=== PATIENT | male | born 1940 | race Caucasian/White ===

== ENCOUNTER → 2023-05-12 13:53 | Outpatient (REF) | payer OTHER, SELFPAY | LOC: RCS 13:53 | PROVIDERS: ATTENDING PHYSICIAN Internal Medicine Cardiovascular Disease; FAMILY PHYSICIAN Internal Medicine | DX: I35.1 Nonrheumatic aortic (valve) insufficiency (principal) | CPT/HCPCS: 93306 ==

== ENCOUNTER 2024-02-28 15:42 | Observation (INO) | payer OTHER, SELFPAY ==
[2024-02-28] VITALS (22 sets, daily range): BP systolic 137–174; BP diastolic 72–98; BMI 33.5; BMI 33.2
--- NOTE | 2024-02-28 03:19 | ED.GENMED ---
History of Present Illness
<KUSHAL Aparicio - Last Filed: 03/04/24 00:48>
General
Chief Complaint: Chest Pain
Source: patient
Exam Limitations: none
Time Seen by Provider: 02/28/24 03:19
Nursing documentation reviewed up to this point in time: agreed with
History of Present Illness
History of Present Illness:
Pt is an 83 y/o M with PMH of HTN, HLD and CAD who presents to the ED with Left-sided chest pain x 1 1/2 hours that woke him from sleep. He states the pain originally started in his chest and then began to radiate into the L side of his neck and
down into his L arm. He states at the worst his pain was 10/10 but is now around 8/10 and is constant. He was given asprin 324mg and 2 doses of nitro on the way to the ED which he states has provided minimal relief. He also admits to a tingling and
cold sensation in his L arm that his been present since the pain radiated to his arm. He denies this in his R arm. He denies RIOS, changes in vision, nausea, vomiting, palpations, SOB, dyspnea, and abdominal pain.
Past History
<KUSHAL Aparicio - Last Filed: 03/04/24 00:48>
Past History
ED Past Medical History: CAD, GERD, HTN, Hypercholesterolemia and Other (divertulosis)
ED Past Surgical History: Appendectomy, Cardiac (Stent) and Orthopedic
Social History
Tobacco: Non-smoker
Alcohol: None
Drug: None
Personal:
Living: with family
Employment: Employed
Family History
Family History: Hypertension
Review of Systems
<KUSHAL Aparicio - Last Filed: 03/04/24 00:48>
Review of Systems
Allergies reviewed?: Yes
Constitutional: Reports no symptoms
Respiratory: Reports no symptoms
Cardiac: Reports chest pain
ABD/GI: Reports no symptoms
: Reports no symptoms
Musculoskeletal: Reports neck pain (x 1 1/2 hrs)
Neurological: Reports other (tingling sensation in L arm x 1 1/2 hours)
Phy Exam
<ST MarkusLA - Last Filed: 03/04/24 00:48>
General Physical Exam
General Presentation: mild distress
General age: appears stated age
General Skin: warm and dry
General Habitus: elderly and obese
General Mental: alert
General Hydration: appears well hydrated
Cardiovascular Exam
Cardiovascular Exam: regular rate/rhythm
<Matthew Malik DO - Last Filed: 02/28/24 07:47>
Pulmonary Exam
Pulmonary Exam: lungs clear and no respiratory distress
Neurological Exam
Neurological Exam: alert, oriented x3 and speech normal
Skin Exam
Skin Exam: normal color and warm/dry
Psychiatric Exam
Psychiatric Exam: normal mood/affect and anxious
Scores
<KUSHAL Aparicio - Last Filed: 03/04/24 00:48>
Heart Score for Chest Pain Patients
STEMI patient?: No
History: Moderately Suspicious
ECG: Normal
Age: >/= 65 years
Risk Factors: >/= 3 Risk Factors or History of CAD
Troponin: </= Normal Limit
Heart Score for Chest Pain Patients: 5
Heart Score Risk: 20.3% MACE over next 6 weeks
Course
<KUSHAL Aparicio - Last Filed: 03/04/24 00:48>
Orders/Labs/Results
Orders:
Orders
02/28/24 03:29
Electrocardiogram (*1) Urgent
Reason for Study: Other
Other Reason for Exam: Respiratory Distress
Cardiac Monitoring- Treatment ONCE
EKG- Treatment ONCE
IV Insert/Care/Rem.- Treatment PRN
02/28/24 03:31
Complete Blood Count/With Diff Urgent
Comprehensive Metabolic Panel Urgent
Troponin I Urgent
02/28/24 04:44
CT Chest Pe Study Urgent
Comment:
Reason For Exam: neck and chest pain
02/28/24 06:16
EKG [Electrocardiogram (*1)] Urgent
Reason for Study: Chest Pain
Other Reason for Exam: neck pain radiating to his chest
EKG- Treatment ONCE
02/28/24 06:35
Bladder Scan As Directed
Follow Bladder Retention/Intermittent Cath Algorithm?: Yes
PRN if no void in __ hours: 6
Frequency: Per Retention Algorithm
If Bladder Scan Result >: 400
then:: Straight cath
02/28/24 06:36
Straight Cath As Directed
Frequency: Per Retention Algorithm
Additional Instructions: straight cath as needed per acute urinary retention algorithm for 24 hrs
Additional Instructions: for bladder scan greater than 400 mL
02/28/24 06:42
NT-proBNP Urgent
Comment: ADD ON
Troponin I Urgent
02/28/24 09:52
Echo Follow-up Study Urgent
Reason for Study: chest pain
Cardiology Consult: Jeffery Child
Comment: Troponin serially normal, getting Ele today. WE.
Nuclear lexiscan Stress Test Urgent
Reason for Study: chest pain, serially normal Troponin
Cardiology Consult: Jeffery Child
NM Cardiac Stress Urgent
Comment: LEXISCAN, coming from ER, Troponin serially normal
Reason For Exam: chest pain
Type of Stress: Exercise
02/28/24 11:00
Aminophylline 75 mg IV CARDIAC SRVC Q3MPRN PRN
Flush (0.9% Sodium Chloride) [Flush (Nss)] See Dose Instructions IV PER PROTOCOL
Regadenoson [Lexiscan] 0.4 mg IV CARDIAC SRVC ONCE ONE
02/28/24 11:07
Add On- LAB Urgent
Tests Added?: pro-BNP, CVE
02/28/24 12:12
EKG [Electrocardiogram (*1)] Routine
Reason for Study: Chest Pain
02/28/24 13:50
Troponin I Urgent
Comment: OK to draw when back in ER. WE.
02/28/24 Dinner
Cholesterol Lowering
At Your Request: Limited Participation
Does patient need a safe tray?: No
Cholesterol Lowering: Sodium, 2 Gram
02/28/24 15:09
Admit/Transfer Patient As Directed
Co-Sign Provider:
Level of Care: Observation services
Assign to:: Telemetry
Physician / Group: Tomás/hospitalist
Diagnosis: chest pain
Reason for Telemetry: Chest Pain syndromes
Date to Stop Telemetry: 03/01/24
Time to Stop Telemetry: 11:00
02/28/24 15:10
PRN Pain Medication Management As Directed
May give lesser potent ordered pain med per pt: Yes
preference::
Protocol:: Medication orders for pain may be administered in a
manner that supports deferring to patient preference
when the pt is:
- Requesting an ordered lesser potent pain medication.
Least to most potent pain medications are defined
as: acetaminophen < NSAID < tramadol < opioids
(morphine, oxycodone, hydromorphone).
- Requesting a lesser dose of the same medication IF
ORDERED.
- Requesting a less intrusive route of administration
if both routes are prescribed by the provider (PO <
IV).
02/28/24 15:11
Code Status As Directed
Resuscitation Status: Full Code
02/28/24 16:28
Electrocardiogram (*1) Q6H
Reason for Study: Chest Pain
Comment: at admission and Q3H for total of 3, to be done with each troponin
Acetaminophen [Tylenol] 650 mg PO Q6HPRN PRN
02/28/24 16:28
CARDIOLOGY CONSULT Routine
Consulting Provider: Jeffery Child
Was physician already notified: Yes
Activity As Directed
Activity Level: As Tolerated
Bladder Scan As Directed
Follow Bladder Retention/Intermittent Cath Algorithm?: Yes
PRN if no void in __ hours: 6
Frequency: Per Retention Algorithm
If Bladder Scan Result >: 400
then:: Straight cath
INT (Intravenous Needle Therapy) As Directed
Comment: maintain peripheral IV access
Intake/ Output As Directed
Frequency: Per unit guidelines
Straight Cath As Directed
Frequency: Per Retention Algorithm
Additional Instructions: straight cath as needed per acute urinary retention algorithm for 24 hrs
Additional Instructions: for bladder scan greater than 400 mL
Vital Signs As Directed
Frequency: q4h
Weight As Directed
Frequency: Daily
DX Deep Vein Thrombosis Video Routine
02/28/24 17:07
Glycohemoglobin (HgbA1c) Routine
02/28/24 18:00
Enoxaparin Sodium [Lovenox] 40 mg SC QPM
02/28/24 22:28
Electrocardiogram (*1) Q6H
Reason for Study: Chest Pain
Comment: at admission and Q3H for total of 3, to be done with each troponin
02/29/24 04:28
Electrocardiogram (*1) Q6H
Reason for Study: Chest Pain
Comment: at admission and Q3H for total of 3, to be done with each troponin
02/29/24 05:25
Basic Metabolic Panel IN AM
02/29/24 05:26
Complete Blood Count/No Diff IN AM
02/29/24 Breakfast
NPO
Allow oral meds: Yes
Allow clear liquids: 4hrs prior to procedure
Comment: may have unrestricted clear liquid up to 4 hrs prior to scheduled procedure
02/29/24 08:00
Allopurinol [Zyloprim] 100 mg PO DAILY
Aspirin Low Dose EC [Aspir Low (Enteric Coated)] 81 mg PO DAILY
Finasteride [Proscar] 5 mg PO DAILY
Hydrochlorothiazide [Oretic] 25 mg PO DAILY
Lisinopril [Zestril] 40 mg PO DAILY
Metoprolol [Lopressor] 25 mg PO DAILY
Tamsulosin [Flomax] 0.4 mg PO DAILY
03/01/24 11:00
DC Protocol for Telemetry ONCE
Abnormal Lab Results
02/28/24
03:31
MCH 31.3 H pg
(27.0-31.0)
MPV 10.8 H fL
(7.4-10.4)
Absolute Neuts (auto) 7.7 H 10^3/uL
(1.4-6.5)
Absolute Monos (auto) 0.8 H 10^3/uL
(0.1-0.6)
Lymphocytes % 17.7 L %
(20.5-51.1)
Carbon Dioxide 32 H mmol/L
(22-30)
BUN 22 H mg/dl
(9-20)
Glucose 125 H mg/dl
(70-99)
Alkaline Phosphatase 156 H U/L
(38-126)
02/28/24 03:31
02/28/24 03:31
Vital Signs
Initial and Last Documented VS:
Initial Vital Signs
Temp Pulse Resp BP Pulse Ox
98.1 F 67 17 150/98 92
02/28/24 03:13 02/28/24 03:13 02/28/24 03:13 02/28/24 03:13 02/28/24 03:13
Last Documented Vital Signs
Temp Pulse Resp BP Pulse Ox
97.8 F 76 18 146/98 94
02/29/24 11:01 02/29/24 11:01 02/29/24 11:01 02/29/24 11:01 02/29/24 11:01
<Matthew Malik, DO - Last Filed: 02/28/24 07:47>
Orders/Labs/Results
Orders:
Orders
02/28/24 03:29
Electrocardiogram (*1) Urgent
Reason for Study: Other
Other Reason for Exam: Respiratory Distress
Cardiac Monitoring- Treatment ONCE
EKG- Treatment ONCE
IV Insert/Care/Rem.- Treatment PRN
02/28/24 03:31
Complete Blood Count/With Diff Urgent
Comprehensive Metabolic Panel Urgent
Troponin I Urgent
02/28/24 04:44
CT Chest Pe Study Urgent
Comment:
Reason For Exam: neck and chest pain
02/28/24 06:16
EKG [Electrocardiogram (*1)] Urgent
Reason for Study: Chest Pain
Other Reason for Exam: neck pain radiating to his chest
EKG- Treatment ONCE
02/28/24 06:35
Bladder Scan As Directed
Follow Bladder Retention/Intermittent Cath Algorithm?: Yes
PRN if no void in __ hours: 6
Frequency: Per Retention Algorithm
If Bladder Scan Result >: 400
then:: Straight cath
02/28/24 06:36
Straight Cath As Directed
Frequency: Per Retention Algorithm
Additional Instructions: straight cath as needed per acute urinary retention algorithm for 24 hrs
Additional Instructions: for bladder scan greater than 400 mL
02/28/24 06:42
NT-proBNP Urgent
Comment: ADD ON
Troponin I Urgent
02/28/24 09:52
Echo Follow-up Study Urgent
Reason for Study: chest pain
Cardiology Consult: Jeffery Child
Comment: Troponin serially normal, getting Ele today. WE.
Nuclear lexiscan Stress Test Urgent
Reason for Study: chest pain, serially normal Troponin
Cardiology Consult: Jeffery Child
NM Cardiac Stress Urgent
Comment: LEXISCAN, coming from ER, Troponin serially normal
Reason For Exam: chest pain
Type of Stress: Exercise
02/28/24 11:00
Aminophylline 75 mg IV CARDIAC SRVC Q3MPRN PRN
Flush (0.9% Sodium Chloride) [Flush (Nss)] See Dose Instructions IV PER PROTOCOL
Regadenoson [Lexiscan] 0.4 mg IV CARDIAC SRVC ONCE ONE
02/28/24 11:07
Add On- LAB Urgent
Tests Added?: pro-BNP, CVE
02/28/24 12:12
EKG [Electrocardiogram (*1)] Routine
Reason for Study: Chest Pain
02/28/24 13:50
Troponin I Urgent
Comment: OK to draw when back in ER. WE.
02/28/24 Dinner
Cholesterol Lowering
At Your Request: Limited Participation
Does patient need a safe tray?: No
Cholesterol Lowering: Sodium, 2 Gram
02/28/24 15:09
Admit/Transfer Patient As Directed
Co-Sign Provider:
Level of Care: Observation services
Assign to:: Telemetry
Physician / Group: Tomás/hospitalist
Diagnosis: chest pain
Reason for Telemetry: Chest Pain syndromes
Date to Stop Telemetry: 03/01/24
Time to Stop Telemetry: 11:00
02/28/24 15:10
PRN Pain Medication Management As Directed
May give lesser potent ordered pain med per pt: Yes
preference::
Protocol:: Medication orders for pain may be administered in a
manner that supports deferring to patient preference
when the pt is:
- Requesting an ordered lesser potent pain medication.
Least to most potent pain medications are defined
as: acetaminophen < NSAID < tramadol < opioids
(morphine, oxycodone, hydromorphone).
- Requesting a lesser dose of the same medication IF
ORDERED.
- Requesting a less intrusive route of administration
if both routes are prescribed by the provider (PO <
IV).
02/28/24 15:11
Code Status As Directed
Resuscitation Status: Full Code
02/28/24 16:28
Electrocardiogram (*1) Q6H
Reason for Study: Chest Pain
Comment: at admission and Q3H for total of 3, to be done with each troponin
Acetaminophen [Tylenol] 650 mg PO Q6HPRN PRN
02/28/24 16:28
CARDIOLOGY CONSULT Routine
Consulting Provider: Jeffery Child
Was physician already notified: Yes
Activity As Directed
Activity Level: As Tolerated
Bladder Scan As Directed
Follow Bladder Retention/Intermittent Cath Algorithm?: Yes
PRN if no void in __ hours: 6
Frequency: Per Retention Algorithm
If Bladder Scan Result >: 400
then:: Straight cath
INT (Intravenous Needle Therapy) As Directed
Comment: maintain peripheral IV access
Intake/ Output As Directed
Frequency: Per unit guidelines
Straight Cath As Directed
Frequency: Per Retention Algorithm
Additional Instructions: straight cath as needed per acute urinary retention algorithm for 24 hrs
Additional Instructions: for bladder scan greater than 400 mL
Vital Signs As Directed
Frequency: q4h
Weight As Directed
Frequency: Daily
DX Deep Vein Thrombosis Video Routine
02/28/24 17:07
Glycohemoglobin (HgbA1c) Routine
02/28/24 18:00
Enoxaparin Sodium [Lovenox] 40 mg SC QPM
02/28/24 22:28
Electrocardiogram (*1) Q6H
Reason for Study: Chest Pain
Comment: at admission and Q3H for total of 3, to be done with each troponin
02/29/24 04:28
Electrocardiogram (*1) Q6H
Reason for Study: Chest Pain
Comment: at admission and Q3H for total of 3, to be done with each troponin
02/29/24 05:25
Basic Metabolic Panel IN AM
02/29/24 05:26
Complete Blood Count/No Diff IN AM
02/29/24 Breakfast
NPO
Allow oral meds: Yes
Allow clear liquids: 4hrs prior to procedure
Comment: may have unrestricted clear liquid up to 4 hrs prior to scheduled procedure
02/29/24 08:00
Allopurinol [Zyloprim] 100 mg PO DAILY
Aspirin Low Dose EC [Aspir Low (Enteric Coated)] 81 mg PO DAILY
Finasteride [Proscar] 5 mg PO DAILY
Hydrochlorothiazide [Oretic] 25 mg PO DAILY
Lisinopril [Zestril] 40 mg PO DAILY
Metoprolol [Lopressor] 25 mg PO DAILY
Tamsulosin [Flomax] 0.4 mg PO DAILY
03/01/24 11:00
DC Protocol for Telemetry ONCE
Abnormal Lab Results
02/28/24
03:31
MCH 31.3 H pg
(27.0-31.0)
MPV 10.8 H fL
(7.4-10.4)
Absolute Neuts (auto) 7.7 H 10^3/uL
(1.4-6.5)
Absolute Monos (auto) 0.8 H 10^3/uL
(0.1-0.6)
Lymphocytes % 17.7 L %
(20.5-51.1)
Carbon Dioxide 32 H mmol/L
(22-30)
BUN 22 H mg/dl
(9-20)
Glucose 125 H mg/dl
(70-99)
Alkaline Phosphatase 156 H U/L
(38-126)
02/28/24 03:31
02/28/24 03:31
Vital Signs
Initial and Last Documented VS:
Initial Vital Signs
Temp Pulse Resp BP Pulse Ox
98.1 F 67 17 150/98 92
02/28/24 03:13 02/28/24 03:13 02/28/24 03:13 02/28/24 03:13 02/28/24 03:13
Last Documented Vital Signs
Temp Pulse Resp BP Pulse Ox
97.8 F 76 18 146/98 94
02/29/24 11:01 02/29/24 11:01 02/29/24 11:01 02/29/24 11:01 02/29/24 11:01
<KUSHAL Aparicio - Last Filed: 03/04/24 00:48>
MDM/Problems Addressed
Differential Diagnosis Includes:
STEMI, NSTEMI, costochondritis, PE
Chronic conditions affecting care: HTN and CAD
<Matthew Malik DO - Last Filed: 02/28/24 07:47>
MDM/Problems Addressed
Differential Diagnosis Includes:
STEMI, NSTEMI, costochondritis, PE, urinary retention
<KUSHAL Aparicio - Last Filed: 03/04/24 00:48>
*EKG
Interpreted by ED Provider?: Yes
EKG Intrepretation Date: 02/28/24
EKG Intrepretation Time: 03:30
Interpretation: abnormal
Comparison EKG: no changes
Heart Rate: 68
Rate: normal
Rhythm: sinus
[place]: normal axis
Interval: first degree heart block
QRS Pattern: left vent hypertrophy
Ischemia: no ischemia
*Critical Care Note
Total Time (30-74mins, 75-104mins- exclusive of procedures): Not Applicable
<Matthew Malik DO - Last Filed: 02/28/24 07:47>
Patient Management
Social determinants of health affecting care: Strong social support
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
<KUSHAL Aparicio - Last Filed: 03/04/24 00:48>
Update Note
Update Note:
02/28/24 @ 04:30am: Pt's oxygen sat dropped to mid-80s and pt was given oxygen via nasal canula. Oxygen stat improved to 94% after and pt is in no respiratory distress and is comfortable.
02/28/24 @ 06:00am: Pt reports he is uncomfortable because he has been unable to urinate. He states the last time he was able to go was around 01:00am when he was going to bed at home. He says he is also worried about his chest pain and thinks this
may be why he is unable to urinate. Discussed issue with nursing staff and will have them continue to check on pt.
<Matthew Malik DO - Last Filed: 02/28/24 07:47>
Update Note
Update Note:
EKG shows sinus rhythm rate of 72. First-degree block with a TN interval of 264 ms. QRS duration of 110. LVH as evidenced by high amplitude. When compared with previous EKG no significant change was found.
02/28/24 @ 04:30am: Pt's oxygen sat dropped to mid-80s and pt was given oxygen via nasal canula. Oxygen stat improved to 94% after and pt is in no respiratory distress and is comfortable.
02/28/24 @ 06:00am: Pt reports he is uncomfortable because he has been unable to urinate. He states the last time he was able to go was around 01:00am when he was going to bed at home. He says he is also worried about his chest pain and thinks this
may be why he is unable to urinate. Discussed issue with nursing staff and will have them continue to check on pt.
Patient had a bladder scan which showed 500 cc of urine in his bladder. Straight cath was placed and provided relief. Patient still having chest pain. Second troponin is negative.
ED Attending Note
<KUSHAL Aparicio - Last Filed: 03/04/24 00:48>
-
Portions of this chart may have been created with voice recognition software.� Occasional wrong word or��sound alike� substitutions may have occurred due to the inherent limitations of voice recognition software.
<Matthew Malik DO - Last Filed: 02/28/24 07:47>
ED Attending Note
Patient seen and examined by attending physician: Yes
I performed the substantive portion of visit, reviewed & personally made and approve the management plan that is documented in note by myself or DELMI.: Yes
ED Attending Note:
This a pleasant 83-year-old male brought in by [facility] for chest pain radiating to his neck. Patient stated that its worst, pain was 8 out of 10. He took 324 aspirin and had 2 nitroglycerin and route to the hospital. He had
minimal relief. Patient states that his pain also radiates down his left hand. He denies any shortness of breath. He states that deep inspiration can sometimes exacerbate the symptoms. Denies fever or chills. Patient does have a history of
coronary artery disease but states that his first heart attack did not present with classic chest pain. Patient does have a history of hypertension and hyperlipidemia. Patient was seen in conjunction with the PA student. I have reviewed and agree
with the history and treatment plan presented. On my independent physical exam, patient is awake, alert, and oriented x3, accompanied by and daughter. Heart is regular rate and rhythm. There is a slight systolic murmur present. Lungs are
clear to auscultation bilaterally. Abdomen is obese nontender no hepatosplenomegaly. Skin is warm and dry. There is no diaphoresis.
Incidentally, patient feels that he cannot urinate. He states that sometimes he has difficulty with urination. He states that it is typically self-limited and he has not had the need for Velasquez catheter.
First troponin negative, second troponin is pending
Discharge Plan
Departure
Patient Disposition: Admit
Date of Disposition: 02/28/24
Time of Disposition: 09:52
Presentation/result/management discussed w/ accepting MD/DO: Hospitalist
Patient with high blood pressure during this ER visit?: Yes
Condition: Good
Discharge Problem:
Chest pain
Interventions
Interventions:
*Risk Screen - Suicide Last Done: 02/28/24 03:13
*General Assessment Last Done: 02/28/24 03:13
*Neglect/Abuse Screening Last Done: 02/28/24 03:13
ED- Fall Risk Assessment Last Done: 02/28/24 03:13
*ED COVID-19 Vaccine History Last Done: 02/28/24 03:13
*Nursing Disposition Last Done: 02/28/24 16:26
ED- Cardiac Assessment Last Done: 02/28/24 03:36
Discharge Date and Time
Discharge Date/Time: 02/28/24 16:27
[2024-02-28 03:38] LABS: % Basophils 0.3 % (0-2); % Eosinophils 1.8 % (0-6); % Immature Granulocytes 0.2 % (0-0.5); % Lymphocytes 17.7 % (20.5-51.1); % Monocytes 7.1 % (1.7-9.3); % Neutrophils 72.9 % (42.2-75.2); Absolute Eosinophils 0.2 10^3/uL (0-0.7); Absolute Lymphocytes 1.9 10^3/uL (1.2-3.4); Absolute Monocytes 0.8 10^3/uL (0.1-0.6); Absolute Neutrophils 7.7 10^3/uL (1.4-6.5); Hematocrit 46.7 % (39.0-52.0); Hemoglobin 15.6 g/dL (13.0-18.0); Mean Corp Hgb Conc. 33.4 g/dL (33.0-37.0); Mean Corpuscular Hgb 31.3 pg (27.0-31.0); Mean Corpuscular Volume 93.6 fL (80.0-94.0); Mean Platelet Volume 10.8 fL (7.4-10.4); Nucleated Red Blood Cells % 0 % (-); Platelet Count 152 10^3/uL (130-400); Red Blood Cell Count 4.99 10^6/uL (4.70-6.10); Red Cell Dist. Width 13.1 % (11.5-14.5); White Blood Cell Count 10.6 10^3/uL (4.8-10.8)
[2024-02-28 04:02] LABS: ALT (SGPT) 30 U/L (0-50); AST (SGOT) 29 U/L (17-59); Albumin 4.2 g/dl (3.5-5.0); Alkaline Phosphatase 156 U/L (38-126); Blood Urea Nitrogen 22 mg/dl (9-20); Carbon Dioxide 32 mmol/L (22-30); Chloride 100 mmol/L (98-107); Estimated Creatinine Clearance 61 ml/min; Glucose 125 mg/dl (70-99); Potassium 3.6 mmol/L (3.5-5.1); Sodium 141 mmol/L (135-145); Total Bilirubin 0.7 mg/dl (0.2-1.3); Total Protein 7.1 g/dl (6.3-8.2); eGFR > 60.00
[2024-02-28 04:15] LABS: Troponin I 0.013 ng/ml
[2024-02-28 07:32] LABS: Troponin I < 0.012 ng/ml
--- NOTE | 2024-02-28 09:48 | CON.CAR ---
Addendum entered and electronically signed by Jeffery Child, 02/28/24 15:16:
I saw and examined the patient.
The Test Worker's note was reviewed and I agree with the note.
Comment:
Plan:
Prior PCI chest pain, discussed checking echocardiogram and Lexiscan MIBI
Echocardiogram limited was stable with preserved EF.
Lexiscan MIBI showed fixed basal to mid inferior defects consistent with infarct for soft tissue attenuation as no prone imaging was able to be obtained. There did not appear to be ischemic changes.
Given the patient's continued chest symptoms and hx of CAD and PCI, and after discussion patient's daughter, daughter requesting cardiac catheterization to evaluate coronary anatomy.
Outpatient cardiac follow-up to be arranged following procedure
Original Note:
Consultation
Consultation Request
Date/Time Consultation Requested: 02/28/24
Date/Time Consultation Performed: 02/28/24
Requesting Provider: Dr. Malik in the ER
Performing Provider: Dr. Child
Reason for Consultation: Chest pain
Medical History
-
History of Present Illness:
Patient came to ER early this morning with chest pain and cardiology has been consulted. Patient is in the room with his daughter who helps with HPI, patient's daughter is a naturopathic doctor. Patient went to bed at about 1 AM which is a
usual that time for him and then awoke about an hour later which was unusual for him with neck pain that radiated to the left side of his chest. The pain was intense and he immediately called out for help. His daughter was able to check his blood
pressure and it was elevated at 205/123. 911 was called and in the ambulance they gave him nitroglycerin sublingual x 2 with no improvement in his pain. No additional medications or interventions performed in ER. Patient had ECG that showed no
evidence of acute ischemic changes and initial troponin was 0.013. Second troponin was undetectable. Despite this patient has had essentially constant neck and left-sided chest pain. The patient does not feel that he has had this kind of pain
before. Patient has a history of CAD and following chest pain and an abnormal stress test in 2006 he had cardiac catheterization and a Cypher stent was placed in the LAD and he had angioplasty alone of an OM1 lesion. Patient had a repeat
catheterization in 2013 in the setting of chest pain and at that time he had a widely patent proximal LAD stent and the first diagonal was patent. He had another cardiac catheterization for chest pain in 2015 that was stable. His last ischemic
evaluation was a Lexiscan nuclear stress test as noted above.
PMH:
CAD
s/p LAD Cypher stent and PTCA alone of OM-1 lesion 2006
widely patent proximal LAD stent and first diagonal by cath 02/19/14
Widely patent proximal LAD stent and stable coronary anatomy by cath 12/19/15
HTN
Untreated hyperlipidemia
Past Medical History
Past Medical History: Other (in HPI)
Past Surgical History: Appendectomy, Cardiac (LAD PCI and PTCA OM-1 in 2007) and Tonsilectomy
Social History
Tobacco: Non-Smoker
Alcohol: Occasional
Drug: None
Personal:
Living: With Family
Family History
Family History: CAD and Cancer
Allergies / Home Medications
Allergy/AdvReac Type Severity Reaction Status Date / Time
No Known Allergies Allergy Verified 02/28/24 03:23
�Medication �Instructions �Recorded �Confirmed �Type
allopurinol 100 mg tablet 100 mg PO DAILY Gout 01/05/19 02/28/24 History
aspirin 81 mg tablet,delayed 81 mg PO DAILY Blood Pressure 01/05/19 02/28/24 History
release
benazepril 20 mg tablet 40 mg PO DAILY Blood Pressure 01/05/19 02/28/24 History
hydrochlorothiazide 25 mg tablet 25 mg PO DAILY Blood Pressure 01/05/19 02/28/24 History
metoprolol tartrate 25 mg tablet 25 mg PO DAILY Blood Pressure 01/05/19 02/28/24 History
tamsulosin 0.4 mg capsule 0.4 mg PO DAILY Urinary Issue 01/05/19 02/28/24 History
Review of Systems
-
History Source: Patient and Family (daughter, Dr. Cathy Franks, bedside throughout HPI and helped answer questions)
All other systems: Negative unless noted
Physical Exam
Vital Signs
Temp Pulse Resp BP Pulse Ox
98.1 F 62 23 156/88 98
02/28/24 03:13 02/28/24 08:45 02/28/24 08:45 02/28/24 08:30 02/28/24 07:30
GEN: NAD. AAOx3
HEENT: EOMI, MMM
LUNGS: CTA B/L, no wheezes or rales
CV: Reg, S1/S2, 1/6 syst LSB
ABD: soft, BS+, NT, ND
EXT: No clubbing, cyanosis, lesions or edema B/L
NEURO: Gross non-focal
SKIN: Warm, dry and pink. No rash
Lab Results
02/28/24 03:31
02/28/24 03:31
Troponin I < 0.012 ng/ml 02/28/24 06:42
Impression / Plan
-
PCP: Dr. Perrin
Cardiology: Dr. Bradford
Impression:
Chest and neck pain
CAD
s/p LAD Cypher stent and PTCA alone of OM-1 lesion 2006
widely patent proximal LAD stent and first diagonal by cath 02/19/14
Widely patent proximal LAD stent and stable coronary anatomy by cath 12/19/15
HTN
Untreated hyperlipidemia
Lexiscan nuclear stress test 12/19/2020: Medium area of moderately decreased perfusion that is predominantly fixed in the basal inferior, basal inferoseptal, mid inferior and apical inferior segments that improves with prone imaging consistent with
inferior soft tissue attenuation, EF 60%
Echo 05/12/2023: EF 66%, stage I diastolic dysfunction, normal RV size and function, mild to moderate aortic regurgitation
Plan:
-Patient came to ER early this morning with chest pain and cardiology has been consulted. Patient is in the room with his daughter who helps with HPI, patient's daughter is a naturopathic doctor. Patient went to bed at about 1 AM which is a
usual that time for him and then awoke about an hour later which was unusual for him with neck pain that radiated to the left side of his chest. The pain was intense and he immediately called out for help. His daughter was able to check his blood
pressure and it was elevated at 205/123. 911 was called and in the ambulance they gave him nitroglycerin sublingual x 2 with no improvement in his pain. No additional medications or interventions performed in ER. Patient had ECG that showed no
evidence of acute ischemic changes and initial troponin was 0.013. Second troponin was undetectable. Despite this patient has had essentially constant neck and left-sided chest pain. The patient does not feel that he has had this kind of pain
before. Patient has a history of CAD and following chest pain and an abnormal stress test in 2006 he had cardiac catheterization and a Cypher stent was placed in the LAD and he had angioplasty alone of an OM1 lesion. Patient had a repeat
catheterization in 2013 in the setting of chest pain and at that time he had a widely patent proximal LAD stent and the first diagonal was patent. He had another cardiac catheterization for chest pain in 2015 that was stable. His last ischemic
evaluation was a Lexiscan nuclear stress test as noted above.
-Chest pain has been constant for hours and Troponin serially normal to undetectable. ECG reviewed by me and no acute ischemic changes.
-Recommended a Lexiscan nuclear stress test given history of CAD and patient and daughter would feel more comfortable if test was performed prior to discharge. Offered observation level admission with Lexiscan nuclear stress test to be performed
today or tomorrow depending on the availability of nuclear dose.--Called and talked with [facility] and they have an extra dose and can perform stress test today. Called patient's daughter and relayed the news and they are agreeable to stress test
today.
-Check an urgent limited study echo to reevaluate EF in the setting of constant chest pain.
-Chest pain does not sound pleuritic and also was not improved with NTG SL. Pain seems to start in the neck and radiate down the chest so unsure if there is a musculoskeletal component. Recommend admission to the hospitalist service. Talked with
ER attending and that plan is now motion.
-Check CVE, but the patient has historically refused statin therapy.
-BP is 156/88 and he did not take his usual doses of benazepril 40 mg daily, HCTZ 25 mg daily and Toprol-XL 25 mg daily. Will order pending stress test
--- NOTE | 2024-02-28 10:21 | HPS.HSE ---
Family Physician
-
Family Physician: Dontae Perrin
Chief Complaint
-
Neck pain
Chest pain
L arm pain
History of Present Illness
HPI: 83 y/o M with PMH of HTN, HLD, CAD; p/w posterior L sided localized neck pain which woke the patient up.
He then experienced chest pain and L arm pain, which have improved.
He denies to other symptoms.
He was given aspirin 324mg and 2 doses of nitro on the way to the ED. He had urgent stress test which showed mild fixed defects in the basilar to mid inferior segment, consistent with infarct versus soft tissue attenuation. No evidence of ischemia.
Medical History
Past Medical History
Past Medical History: Reports Other
Additional Past Medical History:
HTN,
HLD,
CAD
Past Surgical History: Reports Other
Additional Past Surgical History:
cardiac stent
L ankle screw
Social History
Tobacco: Non-smoker
Alcohol: Occasional
Personal:
Living: With Family
Family History
Family History: Not pertinent
Allergies / Home Medications
Allergies reflects when Allergies were last updated in [employer].
Home Medications with original date entered in [employer]
Allergy/Medication List:
Allergies
Allergy/AdvReac Type Severity Reaction Status Date / Time
No Known Allergies Allergy Verified 02/28/24 03:23
Home Medications
allopurinol 100 mg tablet 100 mg PO DAILY Gout 01/05/19
aspirin 81 mg tablet,delayed release 81 mg PO DAILY Blood Pressure 01/05/19
benazepril 20 mg tablet 40 mg PO DAILY Blood Pressure 01/05/19
hydrochlorothiazide 25 mg tablet 25 mg PO DAILY Blood Pressure 01/05/19
metoprolol tartrate 25 mg tablet 25 mg PO DAILY Blood Pressure 01/05/19
tamsulosin 0.4 mg capsule 0.4 mg PO DAILY Urinary Issue 01/05/19
amino ac-vit G-Si-vogmiubp-hb9 tablet 1 tab PO DAILY 02/28/24
cholecalciferol (vitamin D3) 125 mcg (5,000 unit) tablet (Vitamin D3) 125 mcg PO DAILY 02/28/24
coQ10 (ubiquinol) 200 mg capsule 200 mg PO DAILY 02/28/24
finasteride 5 mg tablet 5 mg PO DAILY 02/28/24
ginkgo biloba 40 mg tablet 160 mg PO DAILY 02/28/24
magnesium oxide 400 mg PO DAILY 02/28/24
omega 5-rbc-lvo-fish oil 1,200 mg (144 mg-216 mg) capsule (Fish Oil) 2 cap PO DAILY 02/28/24
red yeast rice 600 mg capsule 1,200 mg PO DAILY 02/28/24
soybean, fermented 50 mg capsule (Nattokinase) 100 mg PO DAILY 02/28/24
therapeutic multivitamin 2 tab PO DAILY 02/28/24
valerian 100 mg tablet 100 mg PO DAILY 02/28/24
vitamin B complex 1 tab PO DAILY 02/28/24
Review of Systems
-
Cardiac: Reports See HPI and Chest Pain
Musculoskeletal: Reports See HPI (L localized posterior neck pain)
Physical Exam
Vital Signs
Vital Signs
Temp Pulse Resp BP Pulse Ox
36.7 C 62 23 156/88 98
02/28/24 03:13 02/28/24 08:45 02/28/24 08:45 02/28/24 08:30 02/28/24 07:30
Physical Exam
General: Well Developed, Well Nourished, No Apparent Distress, Comfortable and Conversant
HEENT: NormoCephalic, Moist mucous membranes and Atraumatic
Respiratory: Clear and Non Labored Respirations; No Accessory Resp Muscle Use
Cardiac: S1/S2 and Regular Rhythm; No Murmur or Rub
GI: Soft, Non Tender, Non Distended and Normal Bowel Sounds; No Organomegaly
Rectal: Deferred by Provider
Musculoskeletal: No Clubbing, No Cyanosis and No Edema
Skin: No Rash
Neuro: Awake and Alert
Psych: Calm and Intact Judgment/Insight
Laboratory Results
-
02/28/24 03:31
02/28/24 03:31
Laboratory Results
Total Bilirubin 0.7 mg/dl (0.2-1.3) 02/28/24 03:31
AST 29 U/L (17-59) 02/28/24 03:31
ALT 30 U/L (0-50) 02/28/24 03:31
Alkaline Phosphatase 156 U/L (38-126) H 02/28/24 03:31
Troponin I < 0.012 ng/ml 02/28/24 06:42
Data Reviewed
-
Medical Tests (Nuc Med, Echo, EKG etc): Report Reviewed by me (stress test and limited echo from today )
Lab Data: Labs Reviewed by me
Impression/Plan
-
HPI: 83 y/o M with PMH of HTN, HLD, CAD; p/w posterior L sided localized neck pain which woke the patient up.
He then experienced chest pain and L arm pain, which have improved.
He denies to other symptoms.
He was given aspirin 324mg and 2 doses of nitro on the way to the ED. He had urgent stress test which showed mild fixed defects in the basilar to mid inferior segment, consistent with infarct versus soft tissue attenuation. No evidence of ischemia.
A/P:
# Chest pain, admitted for ACS work up/ rule out
# h/o CAD s/p LAD stent 2006
Troponin so far negative
ECG no acute ischemic changes.
Stress test unrevealing
Limited echo also unrevealing: EF 65-70%.
Family requesting cardiac cath, NPO pMN
# posterior L sided localized neck likely musculoskeletal in etiology
Tylenol PRN
Consider warm compress
# Possible urinary retention
Cont with bladder scan
Cont [employer]IVER Flomax, Finasteride
# Untreated hyperlipidemia
Pt is on red yeast rice
# HTN
Cont [employer] benazepril 40 mg daily, HCTZ 25 mg daily, Toprol-XL 25 mg daily- all with holding paramters
DVT ppx: Lovenox SQ
FC
[2024-02-28 12:23] LABS: NT-proBNP 983 pg/ml
[2024-02-28 14:22] LABS: Troponin I < 0.012 ng/ml
--- NOTE | 2024-02-28 15:13 | W.PN.UPDATE ---
Update Note
Progress Note Update
Updated patient, and daughter in the room with stress test results and echo results. Provided the patient's daughter who is a physician with the printed out paper reports of the results as well. Patient and family concerned about ongoing
chest pain and the fact that he has never had a pain like this before. Family is concerned for possible underlying CAD as a cause for his chest pain. Made a plan for admission and cardiac cath in the a.m.
[2024-02-28 17:44] LABS: Troponin I < 0.012 ng/ml
--- NOTE | 2024-02-28 17:46 | PTCARENOTE ---
Patient admitted from ER into room 402-01. Vital signs stable. Patient with continued Chest Pain as per patient since approximately 0230 this morning. Patient describes pain as 'throbbing'. EKG and troponin level drawn at 1700. Will trend trops and
EKGs. Patient oriented to room, use of call burciaga and use of bed and TV controls. Patient verbalizes understanding of teaching. Vital signs stable.
[2024-02-28] MEDS: LOVENOX 40 MG SC (18:01)
--- NOTE | 2024-02-28 19:38 | PTCARENOTE ---
Clarified with Dr. England the following - EKG and troponin levels every 6 hours for a total of 3. First set completed at 1700. Next sets due at 2300 and 0500.
[2024-02-28] MEDS: MELATONIN 5 MG PO (23:46)
--- NOTE | 2024-02-29 00:03 | PTCARENOTE ---
pt having elevated BP since start of shift- at 1999 BP was 166/87, and at 2345 BP was 170/88 both done automatically. rechecked pts BP manually at 0000 and it was 166/90. HR sustaining in the 70s. INDUSTRIAL MAINTENANCE ELECTRICIAN made aware, no new orders at this time. will
continue to monitor.
[2024-02-29 00:15] LABS: Troponin I < 0.012 ng/ml
[2024-02-29 03:35] VITALS: BP 173/94
[2024-02-29] MEDS: LOPRESSOR 25 MG PO (04:50)
[2024-02-29 05:40] LABS: Hematocrit 47.4 % (39.0-52.0); Hemoglobin 16.3 g/dL (13.0-18.0); Mean Corp Hgb Conc. 34.4 g/dL (33.0-37.0); Mean Corpuscular Hgb 31.4 pg (27.0-31.0); Mean Corpuscular Volume 91.3 fL (80.0-94.0); Mean Platelet Volume 10.5 fL (7.4-10.4); Platelet Count 145 10^3/uL (130-400); Red Blood Cell Count 5.19 10^6/uL (4.70-6.10); Red Cell Dist. Width 13.5 % (11.5-14.5); White Blood Cell Count 12.3 10^3/uL (4.8-10.8)
[2024-02-29 06:00] VITALS: BMI 32.9
[2024-02-29 06:07] LABS: Blood Urea Nitrogen 25 mg/dl (9-20); Calcium 9.1 mg/dl (8.4-10.2); Carbon Dioxide 28 mmol/L (22-30); Chloride 101 mmol/L (98-107); Estimated Creatinine Clearance 61 ml/min; Glucose 134 mg/dl (70-99); Potassium 3.8 mmol/L (3.5-5.1); Sodium 142 mmol/L (135-145); Troponin I 0.013 ng/ml; eGFR > 60.00
[2024-02-29 07:10] VITALS: BP 195/109
[2024-02-29 07:20] VITALS: BP 196/98
[2024-02-29] MEDS: LOPRESSOR PO (08:00)
[2024-02-29] MEDS: ASPIR LOW (ENTERIC COATED) 81 MG PO (08:45)
[2024-02-29] MEDS: ZESTRIL 40 MG PO (08:46)
[2024-02-29] MEDS: PROSCAR 5 MG PO (08:46)
[2024-02-29] MEDS: ZYLOPRIM 100 MG PO (08:46)
[2024-02-29] MEDS: ORETIC 25 MG PO (08:46)
[2024-02-29] MEDS: FLOMAX 0.4 MG PO (08:46)
[2024-02-29 09:11] LABS: Glycohemoglobin (HgbA1c) 5.8 % (4.0-5.6)
--- NOTE | 2024-02-29 10:39 | W.PN.HOSP.TC ---
Addendum entered and electronically signed by Sachi England MD 02/29/24 14:15:
total DC time 38 min
Original Note:
Today's Communication/Plan
-
see AP
Assessment / Plan
Assessment / Plan
HPI: 83 y/o M with PMH of HTN, HLD, CAD; p/w posterior L sided localized neck pain which woke the patient up.
He then experienced chest pain and L arm pain, which have improved.
He denies to other symptoms.
A/P:
# Chest pain, resolved
# h/o CAD s/p LAD stent 2006
Troponin negative x6
ECG no acute ischemic changes.
Stress test unrevealing
Limited echo also unrevealing: EF 65-70%.
Family now OK to NOT proceed with cardiac cath
# posterior L sided localized neck likely musculoskeletal in etiology
Tylenol PRN
Consider warm compress
# Untreated hyperlipidemia
Pt is on red yeast rice
# HTN
Cont TICKET SORTER benazepril 40 mg daily, HCTZ 25 mg daily, Toprol-XL 25 mg daily
Informed pt to follow BP with PCP
DVT ppx: Lovenox SQ
FC
[facility] Card team
Anticipated Discharge: Today
Subjective/Interval History
-
Date of Service: February 29, 2024
Objective Data
-
Labs:
Laboratory Results
02/29/24 02/29/24
05:25 05:26
WBC 12.3 H
Hgb 16.3
Hct 47.4
Plt Count 145
Sodium 142
Potassium 3.8
Chloride 101
Carbon Dioxide 28
BUN 25 H
Creatinine 1.1
Glucose 134 H
Calcium 9.1
Vital Signs:
Vital Signs
Temp Pulse Resp BP Pulse Ox
37.0 C 78 18 172/98 92
02/29/24 07:10 02/29/24 08:46 02/29/24 07:20 02/29/24 08:46 02/29/24 07:10
I&O
02/28/24 02/29/24 03/01/24
06:59 06:59 06:59
Intake Total 240 / 240
Balance 240 / 240
Review of Systems
-
All other systems: Reviewed and negative
Cardiac: Denies Chest Pain
Physical Exam
-
General: Well Developed, Well Nourished, No Apparent Distress, Comfortable, Conversant and Obese; Negative Respiratory Distress
HEENT: Normocephalic, Atraumatic, Nose Appears Normal and Ears Appear Normal; Negative Oxygen
Respiratory: Clear to Auscultation and Non Labored Respirations; Negative Accessory Resp Muscle Use
Cardiac: Regular Rhythm and S1/S2
GI: Soft, Nontender, Nondistended and Normal Bowel Sounds
Skin: Warm and Dry
Neuro: Awake, Alert, Oriented and AO x 3
Psych: Calm and Intact Judgement/Insight
Data Reviewed
-
Medical Tests (Nuc Med, Echo etc): Report Reviewed by me (echo and stress test)
Labs: Labs Reviewed by me
[2024-02-29 11:01] VITALS: BP 146/98
--- NOTE | 2024-02-29 11:55 | CM ---
Alert awake oriented pt who lives with amina Hooper who live in a 2 story home with 3 steps to enter and 14 step to bed bathroom. will drive him home. Offered VN he declined need.Pt said he is ready for dc.[place] letter given explained and
signed on chart.Pt in independent in all adls.
No adaptive devices.
[facility] VN hx/SNF hx.
Pharmacy [facility]
PCP Dr Perrin
PLAN Home no Needs
--- NOTE | 2024-02-29 12:44 | W.PN.CARDCBS ---
Today's Communication / Plan
-
D/C to home with cardiology f/u arranged
Impression / Plan
-
PCP: Dr. Perrin
Cardiology: Dr. Bradford
Impression:
Chest and neck pain
CAD
s/p LAD Cypher stent and PTCA alone of OM-1 lesion 2006
widely patent proximal LAD stent and first diagonal by cath 02/19/14
Widely patent proximal LAD stent and stable coronary anatomy by cath 12/19/15
HTN
Untreated hyperlipidemia
Lexiscan nuclear stress test 12/19/2020: Medium area of moderately decreased perfusion that is predominantly fixed in the basal inferior, basal inferoseptal, mid inferior and apical inferior segments that improves with prone imaging consistent with
inferior soft tissue attenuation, EF 60%
Echo 05/12/2023: EF 66%, stage I diastolic dysfunction, normal RV size and function, mild to moderate aortic regurgitation
Plan:
-Patient seen prior to d/c.
-Patient with chest pain on admission 02/28/24. Serially normal to undetectable Troponin levels. Lexiscan stress test while in the ER 02/28/24 noted above, no ischemia. Echo in ER also noted above and was stable compared to previous.
-Patient reports dramatic symptomatic improvement overnight, he was unable to turn his head without exacerbating neck and chest pain, but can now turn his head freely without pain. Patient's daughter is also providing massage and this has improved
pain as well.
-Given improved pain and testing as noted the patient feels comfortable with d/c to home without further cardiac testing. Cardiac cath cancelled.
-Patient has historically refused statin therapy.
-BP improved after being placed back on his usual doses of benazepril 40 mg daily, HCTZ 25 mg daily and Toprol-XL 25 mg daily.
-D/C to home and cardiology will arrange a follow up visit. Gave patient's daughter a copy of echo and stress test reports.
HPI: Patient came to ER early this morning with chest pain and cardiology has been consulted. Patient is in the room with his daughter who helps with HPI, patient's daughter is a naturopathic doctor. Patient went to bed at about 1 AM which is a
usual that time for him and then awoke about an hour later which was unusual for him with neck pain that radiated to the left side of his chest. The pain was intense and he immediately called out for help. His daughter was able to check his blood
pressure and it was elevated at 205/123. 911 was called and in the ambulance they gave him nitroglycerin sublingual x 2 with no improvement in his pain. No additional medications or interventions performed in [facility] ER. Patient had ECG that showed no
evidence of acute ischemic changes and initial troponin was 0.013. Second troponin was undetectable. Despite this patient has had essentially constant neck and left-sided chest pain. The patient does not feel that he has had this kind of pain
before. Patient has a history of CAD and following chest pain and an abnormal stress test in 2006 he had cardiac catheterization and a Cypher stent was placed in the LAD and he had angioplasty alone of an OM1 lesion. Patient had a repeat
catheterization in 2013 in the setting of chest pain and at that time he had a widely patent proximal LAD stent and the first diagonal was patent. He had another cardiac catheterization for chest pain in 2016 that was stable. His last ischemic
evaluation was a Lexiscan nuclear stress test as noted above.
Progress Note - [employer]
Subjective
Date of Service: February 29, 2024
Feels much better, no more neck and chest pain
Objective
Labs:
02/29/24 05:26
02/29/24 05:25
Labs
Hgb 16.3 g/dL (13.0-18.0) 02/29/24 05:
Hct 47.4 % (39.0-52.0) 02/29/24 05:26
Plt Count 145 10^3/uL (130-400) 02/29/24 05:26
Sodium 142 mmol/L (135-145) 02/29/24 05:25
Potassium 3.8 mmol/L (3.5-5.1) 02/29/24 05:25
BUN 25 mg/dl (9-20) H 02/29/24 05:25
Creatinine 1.1 mg/dL (0.7-1.3) 02/29/24 05:25
Glucose 134 mg/dl (70-99) H 02/29/24 05:25
Troponins
02/28/24 02/28/24 02/28/24
03:31 06:42 13:50
Troponin I 0.013 < 0.012 < 0.012
02/28/24 02/28/24 02/28/24
16:28 17:00 17:08
Troponin I Cancelled Cancelled < 0.012
02/28/24 02/28/24 02/28/24
18:00 19:28 20:00
Troponin I Cancelled Cancelled Cancelled
02/28/24 02/28/24 02/28/24
22:28 23:00 23:05
Troponin I Cancelled Cancelled < 0.012
02/29/24
05:25
Troponin I 0.013
Vital Signs and I&O:
Vital Signs
Temp Pulse Resp BP Pulse Ox
97.8 F 76 18 146/98 94
02/29/24 11:01 02/29/24 11:01 02/29/24 11:01 02/29/24 11:01 02/29/24 11:01
Vital Signs
Temp Pulse Resp BP Pulse Ox
97.8 F 76 18 146/98 94
02/29/24 11:01 02/29/24 11:01 02/29/24 11:01 02/29/24 11:01 02/29/24 11:01
Intake & Output
02/27/24 02/28/24 02/29/24 03/01/24
06:59 06:59 06:59 06:59
Intake Total 240 / 240
Balance 240 / 240
Physical Exam
Physical Exam
GEN: NAD. AAOx3
HEENT: MMM
LUNGS: No audible wheeze
CV: SR on tele
ABD: ND
EXT: No edema B/L
NEURO: Gross non-focal
SKIN: No rash
--- NOTE | 2024-02-29 13:59 | W.DCSUMMARY ---
Discharge Summary
Discharge Data
Date of Admission: 02/28/24
Date of Discharge: 02/29/24
-
Pending Results: No
Hospital Course
Principal Diagnosis:
Posterior left neck pain, left-sided chest pain, and left arm pain, improved, suspect musculoskeletal in etiology.
Chronic Diagnoses:�
History of coronary artery disease status post left anterior descending artery stent 2006
Untreated hyperlipidemia. Noted patient is on red yeast rice
Essential hypertension
Consultations:�
Cardiology
Procedures:�
Cardiac stress test, which was unrevealing
Clinical course:�
This is a 83 year old male with past medical history as stated above, who presented with posterior left neck pain, left-sided chest pain, and left arm pain.
Problem 1:
Posterior left neck pain, left-sided chest pain, and left arm pain, improved, suspect musculoskeletal in etiology.
Coronary artery disease was ruled out.
Patient had negative troponin x 6, his EKG showed no acute ischemic changes.
He underwent stress test which was unrevealing.
His limited echo was also unrevealing, showed EF of 65 to 70%.
Initially there was plan for cardiac catheterization per patient's family request, however given his symptoms improved, cardiac catheterization was cancelled.
He can continue with Tylenol as needed for pain control.
Problem 2:
Hypertension.
He can continue with prior to admission benazepril, hydrochlorothiazide, metoprolol.
He has been informed to follow-up with his PCP closely for BP monitoring, and to titrate medications if needed.
As for the rest of his medical problems, they were stable during his hospital stay.
Discharge Plan
-
Patient Disposition: Home (Routine Discharge)
Discharge Diagnosis/Procedures: Posterior Left sided localized neck pain likely musculoskeletal in etiology;
Resolved chest pain
Condition: Good
Diet: As tolerated, Low Fat, Low Cholesterol and Low Sodium
Activity: As tolerated
Driving Restrictions: As prior to admission
Referrals:
Aydin,Dontae I., DO [Family Provider] - in less than 1 week
Prescriptions:
Continued
allopurinol 100 MG tablet
100 mg PO DAILY
aspirin 81 MG tablet,delayed release (DR/EC)
81 mg PO DAILY
tamsulosin 0.4 MG capsule
0.4 mg PO DAILY
benazepril 20 MG tablet
40 mg PO DAILY
hydrochlorothiazide 25 MG tablet
25 mg PO DAILY
metoprolol tartrate 25 MG tablet
25 mg PO DAILY
therapeutic multivitamin Tablet
2 tab PO DAILY
vitamin B complex Tablet
1 tab PO DAILY
valerian 100 mg Tablet
100 mg PO DAILY
finasteride 5 mg Tablet
5 mg PO DAILY
amino ac-vit [id number]-[id number] Tablet
1 tab PO DAILY
red yeast rice 600 mg Capsule
1,200 mg PO DAILY
cholecalciferol (vitamin D3) [Vitamin D3] 125 mcg (5,000 unit) Tablet
125 mcg PO DAILY
omega 1-yut-nxw-fish oil [Fish Oil] 1,200 (144-216) mg Capsule
2 cap PO DAILY
coQ10 (ubiquinol) 200 mg Capsule
200 mg PO DAILY
magnesium oxide 400 mg magnesium Tablet
400 mg PO DAILY
Nattokinase 50 mg Capsule
100 mg PO DAILY
ginkgo biloba 40 mg Tablet
160 mg PO DAILY
Discharge Orders:
Discharge Patient (As Directed); Ordered 02/29/24
Ordered By: Sachi England
Discharge Date and Time
Discharge Date/Time: 02/29/24 12:36
Print Language: SAMI
== END 2024-02-29 12:36 | disposition home or self-care (01) ==
LOC: 4 EAST ACU 15:42
PROVIDERS: Physician Assistant Medical; ADMITTING PHYSICIAN Internal Medicine; CONSULT PHYSICIAN Nuclear Medicine Nuclear Cardiology; EMERGENCY PHYSICIAN Student in an Organized Health Care Education/Training Program; FAMILY PHYSICIAN Internal Medicine
DX: R07.9 Chest pain, unspecified (principal); M79.622 Pain in left upper arm; M54.2 Cervicalgia; E78.00 Pure hypercholesterolemia, unspecified; R20.2 Paresthesia of skin; I10 Essential (primary) hypertension; I35.1 Nonrheumatic aortic (valve) insufficiency; J98.11 Atelectasis; I49.1 Atrial premature depolarization; K80.20 Calculus of gallbladder without cholecystitis without obstruction; K21.9 Gastro-esophageal reflux disease without esophagitis; E66.9 Obesity, unspecified; R06.03 Acute respiratory distress; Z68.32 Body mass index [BMI] 32.0-32.9, adult; Z90.49 Acquired absence of other specified parts of digestive tract; Z95.5 Presence of coronary angioplasty implant and graft; Z82.49 Family history of ischemic heart disease and other diseases of the circulatory system
CPT/HCPCS: 93308; 51701; 51798; 71275; 78452; 80048; 80053; 83036; 83880; 84484; 85025; 85027; 93005; 93017; 99285; A9500; G0378; J2785; Q9967

== ENCOUNTER 2024-08-03 09:26 | Day surgery (SDC) | payer OTHER, SELFPAY ==
--- NOTE | 2024-08-03 10:51 | ITS.CL.CARDI ---
Intensive Care Medicine Specialist - Cardioversion
Cardioversion
Procedure Report:
Procedure: Direct current electrical cardioversion
Pre-operative diagnosis: Persistent atrial fibrillation
Post-operative diagnosis: Persistent atrial fibrillation status post DC cardioversion to sinus rhythm
Anesthesia: MAC
Attending Physician: Zack Stevens MD
Procedure Description: The patient was brought to the electrophysiology laboratory in the fasting state. Adherence to anticoagulation regimen was confirmed. Informed consent was obtained from the patient prior to the start of the procedure.
Electrodes were placed on the patient and connected to an external defibrillator. Monitoring of blood pressure, ECG tracings, and pulse oximetry was initiated. The pads were applied to the patient in the anterior and posterior positions. The patient
was sedated by the anesthesiologist. A 200 joule biphasic synchronized shock was delivered to the patient under MAC anesthesia. Sinus rhythm was successfully restored. The patient recovered uneventfully from MAC anesthesia. There were no immediate
post-procedure complications. The patient left the lab in good condition. The attending physician was present throughout the entire procedure.
Impression: Successful direct current cardioversion with synagogue of sinus rhythm after one 200 joule biphasic synchronized shock.
== END 2024-08-03 11:31 | disposition home or self-care (01) ==
LOC: CATH 09:26
PROVIDERS: ATTENDING PHYSICIAN Internal Medicine Cardiovascular Disease; FAMILY PHYSICIAN Internal Medicine; OTHER PHYSICIAN Internal Medicine Cardiovascular Disease
DX: I48.19 Other persistent atrial fibrillation (principal); Z79.02 Long term (current) use of antithrombotics/antiplatelets; I10 Essential (primary) hypertension; E78.5 Hyperlipidemia, unspecified
CPT/HCPCS: 92960; 93005